=== PATIENT | female | born 1995 | race Caucasian/White ===

== ENCOUNTER → 2017-03-11 | Outpatient (CLI) | payer BC | END | disposition home or self-care (01) | LOC: LABWHC1 10:49 | PROVIDERS: ATTEND Otolaryngology | DX: J30.9 Allergic rhinitis, unspecified (principal) | CPT/HCPCS: 36415 ==

== ENCOUNTER → 2018-01-27 | Outpatient (CLI) | payer BC ==
--- NOTE | 2018-01-27 15:57 | MR ---
MR angiogram of the chest without and with contrast HISTORY: M54.2, M 35.7, decreased pulse in right arm with arms raised Multiplanar multisequence and postcontrast images obtained through the chest following 5.5 cc Gadavis t IV, scanning performed with arms raised No comparisons There is no evident adenopathy. Fibrocystic changes noted within the breasts. Bone marrow signal is m aintained. No evident central canal stenosis in the upper thoracic canal. Central pulmonary arteries appear patent. There is a spinal curvature. The aorta within the chest is patent shows no dissection or aneurysm. The innominate artery, left and right subclavian arteries, axillary arteries are patent and show no dissection. Left and right commo n carotid arteries are patent, internal and external carotid arteries are patent proximally. Left and right axillary, subclavian, innominate veins are patent. IMPRESSION: Thoracic outlet syndrome is not evident. Consider vascular surgery consult for better amberly luation. Chest CT may be of benefit. Lordosis.
== END | disposition home or self-care (01) ==
LOC: RADMRIMAIN 11:22
PROVIDERS: ATTEND Physical Medicine & Rehabilitation
DX: M54.2 Cervicalgia (principal); M25.511 Pain in right shoulder; M35.7 Hypermobility syndrome
CPT/HCPCS: 71555; A9581

== ENCOUNTER → 2019-01-11 | Outpatient (CLI) | payer BC ==
--- NOTE | 2019-01-12 07:36 | US ---
EXAMINATION TYPE: US thyroid st tissue head/neck DATE OF EXAM: 01/11/2019 COMPARISON: NONE CLINICAL HISTORY: E04.1 Thyroid nodule; E04.9 Goiter. Enlarged thyroid GLAND SIZE: Right Lobe: 4.9 x 1.0 x 1.9 cm Overall Parenchyma: homogenous Left Lobe: 3.9 x 1.1 x 1.4 cm Overall Parenchyma: homogeneous Isthmus Thickness: 0.2 cm NODULES RIGHT: # of nodules measured on right: 1 1. 0.7 X 0.5 x 0.7 cm hypoechoic solid nodule at the mid pole with poorly defined margins. This nod ule is wider than tall and shows intranodular vascularity. Prior size: no previous LEFT: # of nodules measured on left: 0 ISTHMUS: # of nodules measured in the isthmus: 0 Bilateral neck scanned, no evidence of lymphadenopathy. IMPRESSION: Subcentimeter nonspecific nodule right thyroid lobe. Follow-up advised. Right thyroid lobe is enlarge d.
== END ==
LOC: RADUSWWP 16:23
PROVIDERS: ATTEND Otolaryngology
DX: E04.1 Nontoxic single thyroid nodule (principal)
CPT/HCPCS: 76536

== ENCOUNTER → 2020-06-13 | Outpatient (CLI) | payer BC | END | disposition home or self-care (01) | LOC: PNWHC3 10:46 | PROVIDERS: ATTEND Specialist | DX: Z53.9 Procedure and treatment not carried out, unspecified reason (principal) ==